=== PATIENT | female | born 2000 | race Two or more races ===

== ENCOUNTER 2023-11-21 14:56 | Outpatient (CLI) | payer OTHER | END 2023-11-21 14:57 | disposition home or self-care (01) | LOC: PRENATAL 14:56 | PROVIDERS: ATTEND Obstetrics & Gynecology Maternal & Fetal Medicine | DX: Z76.1 Encounter for health supervision and care of foundling (principal) ==

== ENCOUNTER → 2024-01-10 14:08 | Outpatient (CLI) | payer OTHER | END | disposition home or self-care (01) | LOC: PRENATAL 14:08 | PROVIDERS: ATTEND Obstetrics & Gynecology Maternal & Fetal Medicine | DX: O35.3XX0 Maternal care for (suspected) damage to fetus from viral disease in mother, not applicable or unspecified (principal); O44.00 Complete placenta previa NOS or without hemorrhage, unspecified trimester; O99.891 Other specified diseases and conditions complicating pregnancy; Z3A.22 22 weeks gestation of pregnancy ==

== ENCOUNTER → 2024-02-27 10:32 | Outpatient (CLI) | payer OTHER | END | disposition home or self-care (01) | LOC: PRENATAL 10:32 | PROVIDERS: ATTEND Obstetrics & Gynecology Maternal & Fetal Medicine | DX: O26.849 Uterine size-date discrepancy, unspecified trimester (principal); O36.8199 Decreased fetal movements, unspecified trimester, other fetus; O99.891 Other specified diseases and conditions complicating pregnancy; Z3A.28 28 weeks gestation of pregnancy ==

== ENCOUNTER 2024-04-03 15:31 | Outpatient (CLI) | payer OTHER | END 2024-04-03 15:33 | disposition home or self-care (01) | LOC: PRENATAL 15:31 | PROVIDERS: ATTEND Obstetrics & Gynecology Maternal & Fetal Medicine | DX: O26.849 Uterine size-date discrepancy, unspecified trimester (principal); O36.8199 Decreased fetal movements, unspecified trimester, other fetus; Z3A.34 34 weeks gestation of pregnancy ==

== ENCOUNTER 2024-04-29 08:01 | Inpatient (IN) | payer OTHER ==
[~2024-04-29] VITALS: Ht 157.5 cm; Wt 71.7 kg
[2024-04-29 07:43] VITALS: BP 128/88
[2024-04-29] MEDS ORDERED: RINGERS SOLUTION,LACTATED 1,000 ML IV SCH (08:30)
[2024-04-29] MEDS ORDERED: MORPHINE SULFATE 4 MG/ML CARTRIDGE IV ONE (08:30)
[2024-04-29 08:39] VITALS: BP 115/75
[2024-04-29] MEDS ORDERED: PRENATABS RX T1 EACH PO (08:46)
[2024-04-29 08:52] LABS: HEMATOCRIT 39.1 % (36.0-45.00); HEMOGLOBIN 13.2 g/dL (12.0-15.00); MEAN CELL VOLUME 85.6 fL (80.00-100.00); MEAN CORPUSCULAR HEMOGLOBIN 28.9 pg (27.00-32.0); MEAN CORPUSCULAR HGB CONC 33.8 g/dl (32.0-36.0); PLATELET COUNT 190 K/uL (150-450); RED BLOOD COUNT 4.57 M/uL (4.00-6.00); RED CELL DISTRIBUTION WIDTH 14.2 % (11.5-14.5)
[2024-04-29 09:22] LABS: URINE APPEARANCE Clear; URINE BILIRRUBIN Negative (NEGATIVE); URINE BLOOD Negative; URINE COLOR Yellow; URINE GLUCOSE Negative (NEGATIVE); URINE KETONE Negative (NEGATIVE); URINE LEUKOCYTE Negative; URINE NITRATE Negative; URINE PROTEIN Trace (NEGATIVE); URINE UROBILINOGEN 0.2 E.U./dl
[2024-04-29 09:26] LABS: URINE BACTERIA 2396.5 uL (0.0-1933); URINE EPITHELIAL CELLS 106.2 uL (0.0-38.8); URINE RBC 6.3 uL (0.0-20.8); URINE WBC 42.4 uL (0.0-23.2)
[2024-04-29 10:02] LABS: URINE CAST 0.29 uL (0.0-1.40)
[2024-04-29 11:54] VITALS: BP 128/88
[2024-04-29 12:23] VITALS: BP 126/79
[2024-04-29 13:08] LABS: INR < 0.93; PARTIAL THROMBOPLASTIN TIME 25.9 SECONDS (22.0-34.0); PROTHROMBIN TIME 9.8 SECONDS (9.0-11.5)
[2024-04-29] MEDS ORDERED: ERYTHROMYCIN BASE OPHT 1GM EACH TUBE OP ONE (15:22)
[2024-04-29] MEDS ORDERED: OXYTOCIN 10 UNITS/ML VIAL ONE (15:22)
[2024-04-29 15:29] VITALS: BP 144/88
[2024-04-29] MEDS ORDERED: PROMETHAZINE HCL 50 MG/ML AMPUL IM PRN (16:45)
[2024-04-29] MEDS ORDERED: MEPERIDINE HCL/PF 50 MG/ML VIAL IM PRN (16:45)
[2024-04-29] MEDS ORDERED: CEFAZOLIN SODIUM 1,000 MG VIAL ONE (17:35)
[2024-04-29] MEDS ORDERED: PROMETHAZINE HCL 50 MG/ML AMPUL IM ONE (17:37)
[2024-04-29 20:03] VITALS: BP 135/78
[2024-04-30 01:00] VITALS: BP 122/78
[2024-04-30 06:18] LABS: HEMATOCRIT 33.2 % (36.0-45.00); HEMOGLOBIN 11.6 g/dL (12.0-15.00); MEAN CELL VOLUME 85.2 fL (80.00-100.00); MEAN CORPUSCULAR HEMOGLOBIN 29.7 pg (27.00-32.0); MEAN CORPUSCULAR HGB CONC 34.9 g/dl (32.0-36.0); PLATELET COUNT 174 K/uL (150-450)
[2024-04-30] MEDS ORDERED: OxyCODONE HCL/APAP UD (PERCOCET) PO PRN (08:00)
[2024-04-30 08:08] VITALS: BP 125/76
[2024-04-30] MEDS ORDERED: SIMETHICONE 125 MG CAPSULE PO SCH (09:00)
[2024-04-30] MEDS ORDERED: PNV,CALCIUM 72/IRON/FOLIC ACID 1 TAB TABLET PO SCH (09:00)
[2024-04-30] MEDS ORDERED: DOCUSATE SODIUM 100MG CAP PO SCH (09:00)
[2024-04-30 16:33] VITALS: BP 113/77
[2024-05-01 00:08] VITALS: BP 115/78
[2024-05-01 07:58] VITALS: BP 122/80
[2024-05-01 13:44] VITALS: BP 123/77
[2024-05-01 15:50] VITALS: BP 123/75
[2024-05-02] VITALS: BP 119/78
[2024-05-02 08:31] VITALS: BP 134/68
== END 2024-05-02 14:00 | disposition home or self-care (01) | DRG 788 ==
LOC: OBS/DEL 08:01 → O/R 11:22 → OBS/DEL 11:22 → LDR 11:22 → OB/GYN 11:22 → O/R 16:32 → OB/GYN 18:00
PROVIDERS: ADMIT Obstetrics & Gynecology; ATTEND Obstetrics & Gynecology
PROC: 4A1HXCZ Monitoring of Products of Conception, Cardiac Rate, External Approach (ICD-10-PCS; 2024-04-29)
PROC: BY4FZZZ Ultrasonography of Third Trimester, Single Fetus (ICD-10-PCS; 2024-04-29)
PROC: BU4CZZZ Ultrasonography of Uterus and Ovaries (ICD-10-PCS; 2024-04-29)
PROC: 10D00Z1 Extraction of Products of Conception, Low, Open Approach (ICD-10-PCS; principal; 2024-04-29 17:00)
DX: O98.312 Other infections with a predominantly sexual mode of transmission complicating pregnancy, second trimester (principal); A60.09 Herpesviral infection of other urogenital tract; O36.8130 Decreased fetal movements, third trimester, not applicable or unspecified; O26.843 Uterine size-date discrepancy, third trimester; Z3A.37 37 weeks gestation of pregnancy; Z37.0 Single live birth